=== PATIENT | male | born 1995 | race African-American/Black ===

== ENCOUNTER 2021-10-25 12:03 | Emergency (ER) | payer MEDICAID ==
[~2021-10-25] VITALS: Ht 177.8 cm; Wt 82.0 kg
[~2021-10-25 12:03] MED LIST: BUDE180A3 IH; CLON0.1T PO; FLOVENT; FLOVENT DISKUS INH; FLUO20CA39 PO; LEVA15HF4 INH; LEVO500T2 PO; LINE600T11 PO; LOP25 PO; LORA10TA7 PO; RISP1TAB97 PO
[2021-10-25 12:20] VITALS: BP 160/86
== END 2021-10-25 13:59 | disposition home or self-care (01) ==
LOC: ER 12:03
DX: T40.711A Poisoning by cannabis, accidental (unintentional), initial encounter (principal); F12.188 Cannabis abuse with other cannabis-induced disorder; R07.89 Other chest pain; I10 Essential (primary) hypertension; Z71.51 Drug abuse counseling and surveillance of drug abuser; Y92.89 Other specified places as the place of occurrence of the external cause
CPT/HCPCS: 99283

== ENCOUNTER 2021-10-25 20:12 | Emergency (ER) | payer MEDICAID ==
[~2021-10-25] VITALS: Ht 175.3 cm; Wt 66.0 kg
[2021-10-25 20:25] VITALS: BP 118/78
== END 2021-10-25 21:07 | disposition home or self-care (01) ==
LOC: ER 20:12
DX: R46.2 Strange and inexplicable behavior (principal); F12.90 Cannabis use, unspecified, uncomplicated
CPT/HCPCS: 99283